=== PATIENT | female | born 1960 | race Two or more races ===

== ENCOUNTER 2016-12-17 12:25 | Emergency (ER) | payer OTHER ==
[~2016-12-17] VITALS: Ht 160 cm; Wt 65.8 kg
[~2016-12-17 12:25] MED LIST: AMITRIPTYLINE H25 MG ORAL; ATENOLOL25 MG ORAL; CYCLOBENZAPRINE10 MG ORAL; DIPHENHYDRAMINE25 M1 ORAL; IBUPROFEN600 MG ORAL; LOSARTAN POTASS50 MG ORAL; LOVAZA1 GM ORAL; MELATONIN5 M4 ORAL; OMEPRAZOLE20 M2 ORAL; PEPCID40 MG PO; PREDNISONE20 MG ORAL; PRILOSEC40 MG ORAL; TRAMADOL HCL50 MG ORAL
[2016-12-17 13:00] VITALS: BP 145/71
[2016-12-17 13:28] LABS: BASOPHILS % (AUTO) 0.9 % (0.0-2.0); EOSINOPHILS % (AUTO) 0.2 % (0.0-3.0); MEAN CORPUSCULAR HEMOGLOBIN 30.8 PG (27.0-31.0); MEAN CORPUSCULAR VOLUME 94 FL (80-99); MEAN PLATELET VOLUME 5.5 FL (6.5-10.1); MONOCYTES % (AUTO) 7.3 % (1.0-10.0); NEUTROPHILS % (AUTO) 60.6 % (45.0-75.0); PLATELET COUNT 362 K/UL (150-450); RED BLOOD COUNT 4.83 M/UL (4.20-5.40); RED CELL DISTRIBUTION WIDTH 12.2 % (11.6-14.8); WHITE BLOOD COUNT 15.1 K/UL (4.8-10.8)
[2016-12-17 13:30] LABS: APPEARANCE,URINE CLEAR; KETONES,URINE NEGATIVE (NEGATIVE); LEUKOCYTE ESTERASE ,URINE NEGATIVE (NEGATIVE); NITRITE,URINE NEGATIVE (NEGATIVE); PH,URINE 8 (4.5-8.0); PROTEIN,URINE NEGATIVE (NEGATIVE); UROBILINOGEN,URINE NORMAL MG/DL (0.0-1.0)
[2016-12-17 13:41] LABS: INR 0.9 (0.9-1.1); PROTHROMBIN TIME 9.3 SEC (9.30-11.50)
[2016-12-17 14:10] LABS: ALANINE AMINOTRANSFERASE 30 U/L (12-78); ALBUMIN/GLOBULIN RATIO 1.1 (1.0-2.7); ANION GAP 9 mmol/L (5-15); ASPARTATE AMINO TRANSFERASE 19 U/L (15-37); CALCIUM 9.8 MG/DL (8.5-10.1); CARBON DIOXIDE 27 MMOL/L (21-32); CHLORIDE 103 MMOL/L (98-107); CREATININE 0.8 MG/DL (0.55-1.30); GLOMERULAR FILTRATION RATE > 60 mL/min (>60); LIPASE 110 U/L (73-393); POTASSIUM 3.9 MMOL/L (3.5-5.1); SODIUM 139 MMOL/L (136-145); TOTAL PROTEIN 7.5 G/DL (6.4-8.2)
--- NOTE | 2016-12-17 14:49 | Diagnostic Imaging Report ---
Indication: Chest pain Technique: One view of the chest Comparison: none Findings: Lungs and pleural spaces are clear. Heart size is normal. Impression: No acute process
[2016-12-17] MEDS ORDERED: METRONIDAZOLE500 MG ORAL (15:38)
[2016-12-17] MEDS ORDERED: CIPROFLOXACIN750 MG ORAL (15:38)
[2016-12-17] MEDS ORDERED: ZOFRAN4 M3 ORAL (15:38)
--- NOTE | 2016-12-17 15:38 | Diagnostic Imaging Report ---
Clinical Indication: Left lower quadrant pain Technique: No oral contrast utilized, per emergency room physician request IV administration nonionic contrast. Venous phase spiral acquisition obtained through the abdomen and pelvis. Multiplanar reconstructions were generated. Total dose length product 1005 mGycm. CTDIvol(s) 19 mGy. Dose reduction achieved using automated exposure control Comparison: 10/10/2014 Findings: There is colonic diverticulosis again demonstrated. Interim development of infiltration of the pericolonic fat and thickening of the fascia adjacent to the distal descending colon. No extraluminal gas or focal fluid collections demonstrated. The appendix is normal. No small bowel distention. No free or loculated intraperitoneal air or fluid is evident. The distal esophagus, stomach, duodenum are unremarkable. The liver, gallbladder, bile ducts, pancreas, spleen, adrenals, kidneys are unremarkable. No retroperitoneal mass or adenopathy. Prominent lymph nodes are again demonstrated in the right lower quadrant, equivocally slightly more prominent and abundant than previously. Again demonstrated is enlarged and diffusely heterogeneous uterus. No adnexal mass. No pelvic mass or adenopathy. The included lung bases are clear. The bones demonstrate degenerative spondylosis changes. Impression: Findings are compatible with uncomplicated acute diverticulitis of the distal descending colon Uterine fibroids, also previously described Prominent right lower quadrant lymph nodes, also previously reported but equivocally slightly more prominent and abundant than on the prior exam, significance uncertain Degenerative spondylosis changes incidentally noted. Findings discussed by phone with nurse enedelia Frias in the emergency room at the time of interpretation The CT scanner at [facility] is accredited by the [employer] and the scans are performed using protocols designed to limit radiation exposure to as low as reasonably achievable to attain images of sufficient resolution adequate for diagnostic evaluation.
[2016-12-17 15:45] VITALS: BP 145/71
--- NOTE | 2016-12-17 23:08 | Emergency Room Report ---
History of Present Illness General Chief Complaint: Flu Like Symptoms Source: Patient, Family Member - son Present Illness HPI The patient is a 56-year-old female presenting for multiple complaints including abdominal pain, chills, fatigue, and nausea. She states that this began approximately one week prior and has been worsening. She denies any pain. She denies any known sick contacts or recent travel. She denies any medical history. She denies other symptoms including V, F, SOB, CP, dysuria, abd pain, diarrhea, constipation Allergies: Coded Allergies: ACETAMINOPHEN (Unverified Allergy, Severe, 09/24/14) reaction to body HYDROCODONE (Unverified Allergy, Severe, 09/24/14) reaction to body HYDROMORPHONE (Unverified Allergy, Severe, Shortness of Breath, 09/24/14) TRAMADOL (Verified Allergy, Unknown, 01/18/15) Patient History Past Medical History: see triage record Pertinent Family History: none Last Menstrual Period: na Reviewed Nursing Documentation: PMH: Agreed, PSxH: Agreed Nursing Documentation-PMH Past Medical History: No History, Except For Hx Hypertension: Yes Hx Gastrointestinal Problems: Yes Review of Systems All Other Systems: negative except mentioned in HPI Physical Exam Vital Signs Date Time Temp Pulse Resp B/P (MAP) Pulse Ox O2 Delivery O2 Flow Rate FiO2 12/17/16 12:48 100.6 108 20 145/71 92 Room Air Sp02 EP Interpretation: reviewed, normal General Appearance: no apparent distress, alert, GCS 15, non-toxic Head: normocephalic, atraumatic Eyes: bilateral eye normal inspection, bilateral eye PERRL ENT: hearing grossly normal, normal pharynx, no angioedema, normal voice Neck: full range of motion, supple/symm/no masses Respiratory: chest non-tender, lungs clear, normal breath sounds, no accessory muscle use, no wheezing, speaking full sentences Cardiovascular #1: regular rate, rhythm, no edema Gastrointestinal: normal bowel sounds, soft, non-distended, no guarding, no rebound, tenderness - LLQ Rectal: deferred Genitourinary: normal inspection, no CVA tenderness Musculoskeletal: back normal, gait/station normal, normal range of motion, non- tender Neurologic: alert, oriented x3, responsive, motor strength/tone normal, sensory intact, speech normal Psychiatric: judgement/insight normal, memory normal, mood/affect normal, no suicidal/homicidal ideation Skin: normal color, no rash, warm/dry, well hydrated Lymphatic: no adenopathy Medical Decision Making PA Attestation Dr. Aggarwal is my supervising physician. Patient management was discussed with my supervising physician Diagnostic Impression: Primary Impression: Diverticulitis Qualified Codes: K57.92 - Diverticulitis of intestine, part unspecified, without perforation or abscess without bleeding ER Course The patient is a 56-year-old female presenting for fatigue, chills, and nausea Differential diagnoses considered but not limited to: Gastroenteritis, influenza , anemia, hypothyroidism, diverticulitis, among others Physical exam: Afebrile. No apparent distress HEENT exam is unremarkable. No tonsillar edema. No lymphadenopathy. Lungs are clear to auscultation bilaterally Abdomen is soft. There is localized left lower quadrant pain No CVA tenderness CT scan of abdomen shows left lower diverticulitis The patient states that she is feeling better and will be discharged home with prescription for ciprofloxacin and Flagyl. She is to follow up with her primary doctor and is given precautions to return including fever, melena, or hematochezia Laboratory Tests Test 12/17/16 13:11 White Blood Count 15.1 K/UL (4.8-10.8) H Red Blood Count 4.83 M/UL (4.20-5.40) Hemoglobin 14.9 G/DL (12.0-16.0) Hematocrit 45.1 % (37.0-47.0) Mean Corpuscular Volume 94 FL (80-99) Mean Corpuscular Hemoglobin 30.8 PG (27.0-31.0) Mean Corpuscular Hemoglobin Concent 33.0 G/DL (32.0-36.0) Red Cell Distribution Width 12.2 % (11.6-14.8) Platelet Count 362 K/UL (150-450) Mean Platelet Volume 5.5 FL (6.5-10.1) L Neutrophils (%) (Auto) 60.6 % (45.0-75.0) Lymphocytes (%) (Auto) 31.0 % (20.0-45.0) Monocytes (%) (Auto) 7.3 % (1.0-10.0) Eosinophils (%) (Auto) 0.2 % (0.0-3.0) Basophils (%) (Auto) 0.9 % (0.0-2.0) Prothrombin Time 9.3 SEC (9.30-11.50) Prothrombin Time INR 0.9 (0.9-1.1) PTT 32 SEC (23-33) Urine Color Pale yellow Urine Appearance Clear Urine pH 8 (4.5-8.0) Urine Specific [place] 1.010 (1.005-1.035) Urine Protein Negative (NEGATIVE) Urine Glucose (UA) Negative (NEGATIVE) Urine Ketones Negative (NEGATIVE) Urine Occult Blood Negative (NEGATIVE) Urine Nitrite Negative (NEGATIVE) Urine Bilirubin Negative (NEGATIVE) Urine Urobilinogen Normal MG/DL (0.0-1.0) Urine Leukocyte Esterase Negative (NEGATIVE) Sodium Level 139 MMOL/L (136-145) Potassium Level 3.9 MMOL/L (3.5-5.1) Chloride Level 103 MMOL/L (98-107) Carbon Dioxide Level 27 MMOL/L (21-32) Anion Gap 9 mmol/L (5-15) Blood Urea Nitrogen 9 mg/dL (7-18) Creatinine 0.8 MG/DL (0.55-1.30) Estimate Glomerular Filtration Rate > 60 mL/min (>60) Glucose Level 90 MG/DL (74-106) Calcium Level 9.8 MG/DL (8.5-10.1) Total Bilirubin 0.4 MG/DL (0.2-1.0) Aspartate Amino Transferase (AST) 19 U/L (15-37) Alanine Aminotransferase (ALT) 30 U/L (12-78) Alkaline Phosphatase 103 U/L (46-116) Troponin I 0.000 ng/mL (0.000-0.056) Total Protein 7.5 G/DL (6.4-8.2) Albumin 3.9 G/DL (3.4-5.0) Globulin 3.6 g/dL Albumin/Globulin Ratio 1.1 (1.0-2.7) Lipase 110 U/L (73-393) Lab Results Impression leukocytosis CT/MRI/US Diagnostic Results CT/MRI/US Diagnostic Results : Imaging Test Ordered: CT abd pelvis Impression LLQ diverticulitis Last Vital Signs Date Time Temp Pulse Resp B/P (MAP) Pulse Ox O2 Delivery O2 Flow Rate FiO2 12/17/16 15:45 100.6 88 20 145/71 92 Room Air Status: improved Disposition: HOME, SELF-CARE Condition: Improved Scripts Ondansetron* (ZOFRAN*) 4 Mg Tablet 4 MG ORAL Q6H Y for Nausea & Vomiting, #15 TAB Prov: MICHAEL BERNARD.A. 12/17/16 Metronidazole* (FLAGYL*) 500 Mg Tablet 500 MG ORAL QID, #28 TAB 0 Refills Prov: MICHAEL BERNARD P.A. 12/17/16 Ciprofloxacin Hcl (CIPROFLOXACIN HCL*) 750 Mg Tablet 750 MG ORAL BID, #14 TAB 0 Refills Prov: MICHAEL BERNARD P.A. 12/17/16 Patient Instructions: Diverticulitis Additional Instructions: I discussed my findings with the patient. All questions and concerns have been answered. Treatment and medication compliance have been addressed. I advised the patient that they need to follow up with PMD in 3-5 days. Return to ED if symptoms worsen, new symptoms arise, or if needed for any reason. Patient verbalized understanding of discharge instructions. MICHAEL BERNARD Dec 17, 2016 23:08
== END 2016-12-17 16:04 | disposition home or self-care (01) ==
LOC: EMR 13:01
DX: K57.32 Diverticulitis of large intestine without perforation or abscess without bleeding (principal); I10 Essential (primary) hypertension; D25.9 Leiomyoma of uterus, unspecified; R07.9 Chest pain, unspecified; Z88.6 Allergy status to analgesic agent
CPT/HCPCS: 36415; 71010; 74177; 80053; 81003; 83690; 84484; 85025; 85610; 85730; 96361; 96374; 96375; 99284; J2405; Q9967; S0028

== ENCOUNTER 2016-12-22 11:16 | Emergency (ER) | payer OTHER ==
[~2016-12-22] VITALS: Ht 160 cm; Wt 81.6 kg
[~2016-12-22 11:16] MED LIST changes: +CIPROFLOXACIN750 MG ORAL; +METRONIDAZOLE500 MG ORAL; +ZOFRAN4 M3 ORAL
[2016-12-22 11:19] VITALS: BP 146/90
[2016-12-22] MEDS ORDERED: Lidocaine 2% Visc 15ml soln ORAL ONE (11:45)
[2016-12-22] MEDS ORDERED: Dicyclomine HCl 10mg/5ml oral soln ORAL ONE (11:45)
[2016-12-22] MEDS ORDERED: Mylanta II UD 30ml ORAL ONE (11:45)
[2016-12-22] MEDS ORDERED: cefTRIAXone 1 GM in NS 55 ML IVPB ONE (12:00)
[2016-12-22 12:19] LABS: BASOPHILS % (AUTO) 1.3 % (0.0-2.0); EOSINOPHILS % (AUTO) 0.4 % (0.0-3.0); LYMPHOCYTES % (AUTO) 47.4 % (20.0-45.0); MEAN CORPUSCULAR HEMOGLOBIN 30.8 PG (27.0-31.0); MEAN CORPUSCULAR HGB CONC 33.4 G/DL (32.0-36.0); MEAN CORPUSCULAR VOLUME 92 FL (80-99); MEAN PLATELET VOLUME 4.9 FL (6.5-10.1); MONOCYTES % (AUTO) 6.6 % (1.0-10.0); NEUTROPHILS % (AUTO) 44.3 % (45.0-75.0); PLATELET COUNT 475 K/UL (150-450); RED BLOOD COUNT 5.03 M/UL (4.20-5.40); RED CELL DISTRIBUTION WIDTH 11.8 % (11.6-14.8); WHITE BLOOD COUNT 10.1 K/UL (4.8-10.8)
[2016-12-22 12:36] LABS: PROTHROMBIN TIME 10.2 SEC (9.30-11.50)
[2016-12-22 12:40] LABS: ALANINE AMINOTRANSFERASE 30 U/L (12-78); ANION GAP 12 mmol/L (5-15); ASPARTATE AMINO TRANSFERASE 24 U/L (15-37); CALCIUM 9.9 MG/DL (8.5-10.1); CARBON DIOXIDE 25 MMOL/L (21-32); CHLORIDE 102 MMOL/L (98-107); CREATININE 0.9 MG/DL (0.55-1.30); GLOMERULAR FILTRATION RATE > 60 mL/min (>60); LIPASE 96 U/L (73-393); POTASSIUM 3.9 MMOL/L (3.5-5.1); SODIUM 139 MMOL/L (136-145); TOTAL PROTEIN 8.2 G/DL (6.4-8.2)
--- NOTE | 2016-12-22 12:55 | Emergency Room Report ---
History of Present Illness General Chief Complaint: General Complaint Source: Patient, Family Member Present Illness HPI 56-year-old female history of hypertension, recent diagnosis of diverticulitis on CAT scan on December 17, presenting with abdominal pain, nausea. Patient states that she is taking antibiotics however states it still does not make her feel well, and upsets her stomach, complaining of nausea and unable to eat or drink normally. Denies any fever or chills. Also complaining of bloody diarrhea since Saturday no other complaints Allergies: Coded Allergies: ACETAMINOPHEN (Unverified Allergy, Severe, 09/24/14) reaction to body HYDROCODONE (Unverified Allergy, Severe, 09/24/14) reaction to body HYDROMORPHONE (Unverified Allergy, Severe, Shortness of Breath, 09/24/14) TRAMADOL (Verified Allergy, Unknown, 01/18/15) Patient History Past Medical History: see triage record Past Surgical History: none Pertinent Family History: none Reviewed Nursing Documentation: PMH: Agreed, PSxH: Agreed Nursing Documentation-PMH Hx Hypertension: Yes Hx Gastrointestinal Problems: Yes Review of Systems All Other Systems: negative except mentioned in HPI Physical Exam Vital Signs Date Time Temp Pulse Resp B/P (MAP) Pulse Ox O2 Delivery O2 Flow Rate FiO2 12/22/16 11:19 98.4 98 16 146/90 96 Room Air Sp02 EP Interpretation: reviewed, normal General Appearance: alert, GCS 15, non-toxic, moderate distress Head: normocephalic, atraumatic Eyes: bilateral eye normal inspection, bilateral eye PERRL, bilateral eye EOMI ENT: normal ENT inspection, normal pharynx, normal voice, moist mucus membranes Neck: normal inspection, full range of motion, supple Respiratory: normal inspection, lungs clear, normal breath sounds, no respiratory distress, no retraction, no wheezing, speaking full sentences, chest symmetrical Cardiovascular #1: normal inspection, regular rate, rhythm, no edema, normal capillary refill Cardiovascular #2: 2+ radial (R), 2+ radial (L) Gastrointestinal: soft, non-distended, no guarding, other - Generalized abdominal pain, no focal pain, no guarding no rigidity normal bowel sounds Musculoskeletal: normal inspection, back normal, normal range of motion, non- tender Neurologic: normal inspection, alert, oriented x3, responsive, motor strength/ tone normal, sensory intact, normal gait, speech normal Psychiatric: normal inspection, judgement/insight normal, memory normal Skin: normal inspection, normal color, no rash, warm/dry, well hydrated, normal turgor Medical Decision Making Diagnostic Impression: Primary Impression: Diverticulitis Additional Impressions: Decreased oral intake Dehydration ER Course 56-year-old female recent diagnosis of diverticulitis presenting with abdominal pain and inability to tolerate by mouth Differential Diagnosis: Diverticulitis, patient not able to tolerate by mouth any more Abscess formation, fistula At this time I'm not concerned with perforation as patient is not peritoneal and appears nontoxic Plan: Basic labs, ua, ekg Pepcid, maalox, pain control, IVF CTA abdo pelvis ER course: Antibiotics given IV IVF Disposition: Patient is to be xferred to outside facility, d/w Dr Mena who has accepted pt for xfer signed out patient to Dr Aggarwal -follow up on CT results, pls call Dr Mena for results -xfer to outside hospital Please note that this Emergency Department Report was dictated using BrightFunnelgunstock repairer technology software, occasionally this can lead to erroneous entry secondary to interpretation by the dictation equipment Rhythm Strip EP Interpretation: Yes Rate: 80 Rhythm: NSR, no PVCs, no ectopy Laboratory Tests Test 12/22/16 11:50 White Blood Count 10.1 K/UL (4.8-10.8) Red Blood Count 5.03 M/UL (4.20-5.40) Hemoglobin 15.5 G/DL (12.0-16.0) Hematocrit 46.4 % (37.0-47.0) Mean Corpuscular Volume 92 FL (80-99) Mean Corpuscular Hemoglobin 30.8 PG (27.0-31.0) Mean Corpuscular Hemoglobin Concent 33.4 G/DL (32.0-36.0) Red Cell Distribution Width 11.8 % (11.6-14.8) Platelet Count 475 K/UL (150-450) H Mean Platelet Volume 4.9 FL (6.5-10.1) L Neutrophils (%) (Auto) 44.3 % (45.0-75.0) L Lymphocytes (%) (Auto) 47.4 % (20.0-45.0) H Monocytes (%) (Auto) 6.6 % (1.0-10.0) Eosinophils (%) (Auto) 0.4 % (0.0-3.0) Basophils (%) (Auto) 1.3 % (0.0-2.0) Prothrombin Time 10.2 SEC (9.30-11.50) Prothrombin Time INR 1.0 (0.9-1.1) PTT 35 SEC (23-33) H Sodium Level 139 MMOL/L (136-145) Potassium Level 3.9 MMOL/L (3.5-5.1) Chloride Level 102 MMOL/L (98-107) Carbon Dioxide Level 25 MMOL/L (21-32) Anion Gap 12 mmol/L (5-15) Blood Urea Nitrogen 9 mg/dL (7-18) Creatinine 0.9 MG/DL (0.55-1.30) Estimate Glomerular Filtration Rate > 60 mL/min (>60) Glucose Level 103 MG/DL (74-106) Calcium Level 9.9 MG/DL (8.5-10.1) Total Bilirubin 0.3 MG/DL (0.2-1.0) Aspartate Amino Transferase (AST) 24 U/L (15-37) Alanine Aminotransferase (ALT) 30 U/L (12-78) Alkaline Phosphatase 90 U/L (46-116) Total Protein 8.2 G/DL (6.4-8.2) Albumin 4.1 G/DL (3.4-5.0) Globulin 4.1 g/dL Albumin/Globulin Ratio 1.0 (1.0-2.7) Lipase 96 U/L (73-393) Last Vital Signs Date Time Temp Pulse Resp B/P (MAP) Pulse Ox O2 Delivery O2 Flow Rate FiO2 12/22/16 11:19 98.4 98 16 146/90 96 Room Air Disposition: XFER T-TRM HOSP Condition: Serious RetinoDonovan M.D. Dec 22, 2016 12:55
[2016-12-22 13:40] VITALS: BP 105/72
[2016-12-22 14:33] VITALS: BP 139/75
--- NOTE | 2016-12-23 08:58 | Diagnostic Imaging Report ---
Indication: Acute abdominal pain, nausea. History of recent diverticulitis. Comparison: Abdomen/pelvis CT dated 12/17/16 Technique: Utilizing a multislice CT scanner, a CT of the abdomen and pelvis was performed after the administration of 100 cc Isovue [address] scans at this facility use dose modulation, iterative reconstruction, and/or weight based dosing when appropriate to reduce radiation dose to as low as reasonably achievable. CTDIvol (mGy): 19 DLP (mGy-cm): 957 Findings: Lack of intravenous contrast limits evaluation of the visceral and vascular structures. The visualized lung bases are clear. The liver is unremarkable. The gallbladder is unremarkable. The pancreas, spleen and adrenal glands are unremarkable. No calculus is identified within either kidney, along the expected course of the ureters or within the urinary bladder. There is no evidence of hydronephrosis or asymmetric perirenal inflammatory change. The urinary bladder is grossly unremarkable. The uterus appears enlarged and heterogeneous with probable uterine fibroids, as before. There is thickening of the distal descending colon with extensive diverticula and mild-moderate surrounding inflammatory stranding compatible with uncomplicated diverticulitis. Overall degree of inflammatory change appears improved compared to the prior examination. The remaining visualized bowel are grossly unremarkable. There is no evidence of obstruction. There is no extraluminal gas or fluid. Scattered prominent lymph nodes in the mid and lower abdomen appear essentially stable. There is no significant calcified atherosclerotic disease of the the abdominal aorta. Mild degenerative changes in the lower lumbar spine noted. Impression: 1. Findings compatible with uncomplicated diverticulitis involving the distal descending colon, with improved degree of inflammatory change compared to the prior examination of 12/17/16. No evidence of microperforation or abscess formation. 2. Stable prominent lymph nodes in the mid and lower abdomen, similar to the prior exam. 3. Probable fibroid uterus
== END 2016-12-22 14:42 | disposition short-term general hospital (02) ==
LOC: EMR 12:03
DX: K57.32 Diverticulitis of large intestine without perforation or abscess without bleeding (principal); E86.0 Dehydration; F50.89 Other specified eating disorder; Z88.6 Allergy status to analgesic agent; I10 Essential (primary) hypertension
CPT/HCPCS: 36415; 74177; 80053; 83690; 85025; 85610; 85730; 86850; 86900; 86901; 96361; 96374; 96375; 99284; Q9967; S0028

== ENCOUNTER 2018-01-24 13:40 | Emergency (ER) | payer OTHER ==
[~2018-01-24] VITALS: Ht 160 cm; Wt 81.6 kg
[2018-01-24 13:45] VITALS: BP 162/99
[2018-01-24] MEDS ORDERED: ALEVE220 M2 PO (13:47)
[2018-01-24] MEDS ORDERED: ADVIL100 M2 ORAL (13:47)
[2018-01-24] MEDS ORDERED: OMEPRAZOLE20 M2 ORAL (13:47)
[2018-01-24] MEDS ORDERED: Ketorolac 30mg Inj IM ONE (14:45)
[2018-01-24 15:00] LABS: APPEARANCE,URINE SLIGHTLY CLOUDY; BILIRUBIN, URINE NEGATIVE (NEGATIVE); COLOR,URINE PALE YELLOW; GLUCOSE, URINE (UA) NEGATIVE (NEGATIVE); KETONES,URINE NEGATIVE (NEGATIVE); LEUKOCYTE ESTERASE ,URINE 2+ (NEGATIVE); NITRITE,URINE NEGATIVE (NEGATIVE); PH,URINE 5 (4.5-8.0); PROTEIN,URINE NEGATIVE (NEGATIVE); UROBILINOGEN,URINE NORMAL MG/DL (0.0-1.0)
--- NOTE | 2018-01-24 15:47 | Emergency Room Report ---
History of Present Illness General Chief Complaint: Abdominal Pain Source: Patient Present Illness HPI 57 YO female presents to the ED c/o 11/04 body aches which are primarily in the back and radiate up toward the neck and on occasion down the legs bilaterally. pt. reports symptoms x 1 week. Pt. states initially she has some generalized lower abdominal pain but her pain moved to her back. She denies N/V/F/C, constipation or diarrhea. Pt. denies recent travel. Pt. reports hx of prediabetes. she Denies hematuria, frequency, urgency or dysuria. Pt. denies trauma, fall or recent strenuous activities. Denies CP, Palpitations, LOC, AMS, dizziness, Changes in Vision, Sensation, paresthesias, or a sudden severe headache. Allergies: Coded Allergies: ACETAMINOPHEN (Unverified Allergy, Severe, 01/24/18) reaction to body HYDROCODONE (Unverified Allergy, Severe, 01/24/18) reaction to body HYDROMORPHONE (Unverified Allergy, Severe, Shortness of Breath, 01/24/18) TRAMADOL (Verified Allergy, Unknown, 01/24/18) Patient History Past Medical History: see triage record Past Surgical History: none Pertinent Family History: none Now: No Immunizations: UTD Reviewed Nursing Documentation: PMH: Agreed; PSxH: Agreed Nursing Documentation-PMH Hx Hypertension: Yes Hx Gastrointestinal Problems: Yes Review of Systems All Other Systems: negative except mentioned in HPI Physical Exam Vital Signs Date Time Temp Pulse Resp B/P (MAP) Pulse Ox O2 Delivery O2 Flow Rate FiO2 01/24/18 13:42 97.9 90 24 162/99 99 Room Air Sp02 EP Interpretation: reviewed, normal General Appearance: well appearing, no apparent distress, alert, GCS 15, non- toxic Head: normocephalic, atraumatic Eyes: bilateral eye normal inspection, bilateral eye PERRL ENT: hearing grossly normal, normal voice Neck: full range of motion Respiratory: lungs clear, normal breath sounds, speaking full sentences Cardiovascular #1: regular rate, rhythm, no edema Gastrointestinal: normal bowel sounds, non tender, soft, non-distended, no guarding Genitourinary: normal inspection, no CVA tenderness Musculoskeletal: back normal, gait/station normal, normal range of motion, tender - TTP to the paraspinal musculature throughout the entire back, no CVA, no midline spinous process ttp, pt. also has bilateral trapezius ttp. FROM, no step-off's or obvious deformities. Neurologic: alert, oriented x3, responsive, motor strength/tone normal, sensory intact, normal gait, speech normal, other - NVI, grossly normal Psychiatric: judgement/insight normal Skin: normal color, no rash, warm/dry, well hydrated Lymphatic: no adenopathy Medical Decision Making PA Attestation Dr. Sanford is my supervising Physician whom patient management has been discussed with. Diagnostic Impression: Primary Impression: Diverticulitis Additional Impression: Generalized body aches ER Course 57 YO female presents to the ED c/o 11/04 body aches which are primarily in the back and radiate up toward the neck and on occasion down the legs bilaterally. pt. reports symptoms x 1 week. Pt. states initially she has some generalized lower abdominal pain but her pain moved to her back. She denies N/V/F/C, constipation or diarrhea. Pt. denies recent travel. Pt. reports hx of prediabetes. she Denies hematuria, frequency, urgency or dysuria. Pt. denies trauma, fall or recent strenuous activities. Denies CP, Palpitations, LOC, AMS, dizziness, Changes in Vision, Sensation, paresthesias, or a sudden severe headache. Ddx considered: epidural abscess, fracture, sprain/strain, meningitis, spinal chord injury, sciatica, cauda equina, Pyelonephritis, UTI, renal calculi just to name a few. Vital signs reviewed and are WNL during ED visit. Pt. is afebrile with no signs of infection, ED tenderness No saddle anesthesia noted, Pt. denies incontinence Neurovascular is intact FROM Pt. describes pain today as moderate and radiates across the lower back. ORDERS: UA: Bacteria and WBC's INTERVENTIONS: - 20mg IM Toradol - Lidoderm patch 5% tp. DISCHARGE: At this time pt. is stable for d/c to home. Will provide printed patient care instructions, and any necessary prescriptions. Care plan and follow up instructions have been discussed with the patient prior to discharge. Labs Test 01/24/18 14:50 Urine Color Pale yellow Urine Appearance Slightly cloudy Urine pH 5 (4.5-8.0) Urine Specific [place] 1.005 (1.005-1.035) Urine Protein Negative (NEGATIVE) Urine Glucose (UA) Negative (NEGATIVE) Urine Ketones Negative (NEGATIVE) Urine Blood 2+ (NEGATIVE) Urine Nitrite Negative (NEGATIVE) Urine Bilirubin Negative (NEGATIVE) Urine Urobilinogen Normal MG/DL (0.0-1.0) Urine Leukocyte Esterase 2+ (NEGATIVE) Urine RBC 5-10 /HPF (0 - 2) Urine WBC 5-10 /HPF (0 - 2) Urine Squamous Epithelial Cells Few /LPF (NONE/OCC) Urine Bacteria Few /HPF (NONE) Last Vital Signs Date Time Temp Pulse Resp B/P (MAP) Pulse Ox O2 Delivery O2 Flow Rate FiO2 01/24/18 15:14 97.9 01/24/18 13:45 73 24 162/99 99 Room Air Disposition: HOME, SELF-CARE Condition: Stable Scripts Lidocaine (Lidoderm) 1 Each Adh..patch 1 PATCH TOPIC DAILY, #30 PATCH 0 Refills Patch(es) may remain in place for up to 12 hours in any 24-hour period. Prov: Tawana Rush 01/24/18 Ciprofloxacin Hcl* (CIPROFLOXACIN HCL*) 500 Mg Tablet 500 MG ORAL EVERY 12 HOURS for 7 Days, #14 TAB 0 Refills Prov: Tawana Rush 01/24/18 Ibuprofen* (MOTRIN*) 600 Mg Tablet 600 MG ORAL THREE TIMES A DAY, #30 TAB 0 Refills Prov: Tawana Rush 01/24/18 Methocarbamol* (ROBAXIN-750*) 750 Mg Tablet 750 MG PO QID, #28 TAB 0 Refills Prov: Tawana Rush 01/24/18 Referrals: NON PHYSICIAN (PCP) Patient Instructions: Diverticulitis, [id number], Muscle Cramps and Spasms, [id number] Additional Instructions: Take medications as directed. Follow up with a Primary Care Provider in 3-5 days, even if your symptoms have resolved. --Please review list of primary care clinics, if you do not already have a primary care provider Return sooner to ED if new symptoms occur, or current symptoms become worse. Do not drink alcohol, drive, or operate heavy machinery while taking Robaxin ( Muscle Relaxers) as this may cause drowsiness. - Please note that this Emergency Department Report was dictated using [employer] registry coordinator technology software, occasionally this can lead to erroneous entry secondary to interpretation by the dictation equipment. Tawana Rush Jan 24, 2018 15:47
[2018-01-24] MEDS ORDERED: ROBAXIN-750750 MG PO (15:48)
[2018-01-24] MEDS ORDERED: IBUPROFEN600 MG ORAL (15:48)
[2018-01-24] MEDS ORDERED: CIPROFLOXACIN500 M2 ORAL (15:48)
[2018-01-24] MEDS ORDERED: LIDODERM700 M1 TOPIC (16:01)
[2018-01-24 16:12] VITALS: BP 152/88
== END 2018-01-24 16:10 | disposition home or self-care (01) ==
LOC: EMR 14:21
DX: K57.32 Diverticulitis of large intestine without perforation or abscess without bleeding (principal); M79.10 Myalgia, unspecified site; I10 Essential (primary) hypertension; Z88.6 Allergy status to analgesic agent; Z88.5 Allergy status to narcotic agent
CPT/HCPCS: 81003; 96372; 99283; J1885

== ENCOUNTER 2018-02-11 12:54 | Emergency (ER) | payer OTHER ==
[~2018-02-11] VITALS: Ht 162.6 cm; Wt 81.6 kg
[~2018-02-11 12:54] MED LIST changes: +ADVIL100 M2 ORAL; +ALEVE220 M2 PO; +CIPROFLOXACIN500 M2 ORAL; +LIDODERM700 M1 TOPIC; +ROBAXIN-750750 MG PO
[2018-02-11 13:09] VITALS: BP 131/81
[2018-02-11] MEDS ORDERED: cefTRIAXone 1 GM in NS 55 ML IVPB ONE (13:30)
[2018-02-11 13:54] LABS: HEMATOCRIT 45.1 % (37.0-47.0); HEMOGLOBIN 15.2 G/DL (12.0-16.0); MEAN CORPUSCULAR VOLUME 92 FL (80-99); PLATELET COUNT 350 K/UL (150-450); RED BLOOD COUNT 4.88 M/UL (4.20-5.40); WHITE BLOOD COUNT 9.1 K/UL (4.8-10.8)
[2018-02-11 13:55] LABS: APPEARANCE,URINE CLEAR; BILIRUBIN, URINE NEGATIVE (NEGATIVE); COLOR,URINE PALE YELLOW; GLUCOSE, URINE (UA) NEGATIVE (NEGATIVE); KETONES,URINE NEGATIVE (NEGATIVE); LEUKOCYTE ESTERASE ,URINE NEGATIVE (NEGATIVE); NITRITE,URINE NEGATIVE (NEGATIVE); PH,URINE 6 (4.5-8.0); PROTEIN,URINE NEGATIVE (NEGATIVE); UROBILINOGEN,URINE NORMAL MG/DL (0.0-1.0)
[2018-02-11] MEDS ORDERED: Ketorolac 30mg Inj IV ONE (14:15)
[2018-02-11] MEDS ORDERED: Lidocaine 2% Visc 15ml soln ORAL ONE (14:15)
[2018-02-11 14:18] LABS: ANION GAP 7 mmol/L (5-15); BLOOD UREA NITROGEN 16 mg/dL (7-18); CALCIUM 9.7 MG/DL (8.5-10.1); CARBON DIOXIDE 31 MMOL/L (21-32); CHLORIDE 100 MMOL/L (98-107); CREATININE 0.9 MG/DL (0.55-1.30); POTASSIUM 4.4 MMOL/L (3.5-5.1); SODIUM 138 MMOL/L (136-145)
--- NOTE | 2018-02-11 14:20 | Emergency Room Report ---
History of Present Illness General Chief Complaint: Abdominal Pain Source: Medical Record Present Illness HPI 37-year-old female presents to the emergency department complaining of recurrence of similar abdominal pain which is 10/10 in severity and similar to what she had last month. Patient has a history of recurrent diverticulitis. Patient reports 9 out of 10 in severity pain throughout the lower abdomen with radiation up toward the stomach 3 days. Patient she has not followed up with her doctor as her pain went away last month so she thought she was better. Denies nausea, vomiting, diarrhea, blood in the stool or dark tarry stools. Denies fevers or chills. Allergies: Coded Allergies: ACETAMINOPHEN (Unverified Allergy, Severe, 01/24/18) reaction to body HYDROCODONE (Unverified Allergy, Severe, 01/24/18) reaction to body HYDROMORPHONE (Unverified Allergy, Severe, Shortness of Breath, 01/24/18) MORPHINE (Verified Allergy, Unknown, 02/11/18) TRAMADOL (Verified Allergy, Unknown, 01/24/18) Patient History Past Medical History: see triage record Past Surgical History: none Pertinent Family History: none Last Menstrual Period: menopause Now: No Immunizations: UTD Reviewed Nursing Documentation: PMH: Agreed; PSxH: Agreed Nursing Documentation-PMH Past Medical History: No History, Except For Hx Cardiac Problems: No - high cholesterol Hx Hypertension: Yes Hx Gastrointestinal Problems: Yes Hx Neurological Problems: No - Brain surgery Review of Systems All Other Systems: negative except mentioned in HPI Physical Exam Vital Signs Date Time Temp Pulse Resp B/P (MAP) Pulse Ox O2 Delivery O2 Flow Rate FiO2 02/11/18 13:02 98.1 75 18 131/81 97 Room Air Sp02 EP Interpretation: reviewed, normal General Appearance: no apparent distress, alert, GCS 15, non-toxic Head: normocephalic, atraumatic Eyes: bilateral eye normal inspection, bilateral eye PERRL ENT: hearing grossly normal, normal voice Neck: full range of motion Respiratory: lungs clear, normal breath sounds, speaking full sentences Cardiovascular #1: regular rate, rhythm Gastrointestinal: normal bowel sounds, non tender, soft, no peritonitis, non- distended, no guarding, no rebound Rectal: deferred Genitourinary: normal inspection, no CVA tenderness Musculoskeletal: back normal, gait/station normal, normal range of motion, non- tender Neurologic: alert, oriented x3, responsive, motor strength/tone normal, sensory intact, normal gait, speech normal, grossly normal Psychiatric: judgement/insight normal Skin: normal color, no rash, warm/dry, well hydrated Medical Decision Making PA Attestation Dr. Sanford is my supervising Physician whom patient management has been discussed with. Diagnostic Impression: Primary Impression: Diverticulitis ER Course 37-year-old female presents to the emergency department complaining of recurrence of similar abdominal pain which is 10/10 in severity and similar to what she had last month. Patient has a history of recurrent diverticulitis. Patient reports 9 out of 10 in severity pain throughout the lower abdomen with radiation up toward the stomach 3 days. Patient she has not followed up with her doctor as her pain went away last month so she thought she was better. Denies nausea, vomiting, diarrhea, blood in the stool or dark tarry stools. Denies fevers or chills. Ddx considered but are not limited to Diverticulitis, acute appy, diarrhea,UC, PUD, GE, pancreatitis, gallstone Vital signs: are WNL, pt. is afebrile H&PE are most consistent with Hypovolemia and diarrhea ORDERS: CBC, CMP, lipase, UA ED INTERVENTIONS: -Flagyl IV -Rocephin IV -Zantac IV -Lidocaine Viscous PO DISCHARGE: At this time pt. is stable for d/c to home. Will provide printed patient care instructions, and any necessary prescriptions. Care plan and follow up instructions have been discussed with the patient prior to discharge. Labs Test 02/11/18 13:34 White Blood Count 9.1 K/UL (4.8-10.8) Red Blood Count 4.88 M/UL (4.20-5.40) Hemoglobin 15.2 G/DL (12.0-16.0) Hematocrit 45.1 % (37.0-47.0) Mean Corpuscular Volume 92 FL (80-99) Mean Corpuscular Hemoglobin 31.2 PG (27.0-31.0) Mean Corpuscular Hemoglobin Concent 33.8 G/DL (32.0-36.0) Red Cell Distribution Width 11.0 % (11.6-14.8) Platelet Count 350 K/UL (150-450) Mean Platelet Volume 5.4 FL (6.5-10.1) Neutrophils (%) (Auto) % (45.0-75.0) Lymphocytes (%) (Auto) % (20.0-45.0) Monocytes (%) (Auto) % (1.0-10.0) Eosinophils (%) (Auto) % (0.0-3.0) Basophils (%) (Auto) % (0.0-2.0) Differential Total Cells Counted 100 Neutrophils % (Manual) 34 % (45-75) Lymphocytes % (Manual) 60 % (20-45) Monocytes % (Manual) 4 % (1-10) Eosinophils % (Manual) 1 % (0-3) Basophils % (Manual) 1 % (0-2) Band Neutrophils 0 % (0-8) Platelet Estimate Adequate Platelet Morphology Normal Red Blood Cell Morphology Normal Urine Color Pale yellow Urine Appearance Clear Urine pH 6 (4.5-8.0) Urine Specific [place] 1.005 (1.005-1.035) Urine Protein Negative (NEGATIVE) Urine Glucose (UA) Negative (NEGATIVE) Urine Ketones Negative (NEGATIVE) Urine Blood 1+ (NEGATIVE) Urine Nitrite Negative (NEGATIVE) Urine Bilirubin Negative (NEGATIVE) Urine Urobilinogen Normal MG/DL (0.0-1.0) Urine Leukocyte Esterase Negative (NEGATIVE) Urine RBC 0-2 /HPF (0 - 2) Urine WBC 0-2 /HPF (0 - 2) Urine Squamous Epithelial Cells Occasional /LPF Urine Bacteria Occasional /HPF (NONE) Sodium Level 138 MMOL/L (136-145) Potassium Level 4.4 MMOL/L (3.5-5.1) Chloride Level 100 MMOL/L (98-107) Carbon Dioxide Level 31 MMOL/L (21-32) Anion Gap 7 mmol/L (5-15) Blood Urea Nitrogen 16 mg/dL (7-18) Creatinine 0.9 MG/DL (0.55-1.30) Estimat Glomerular Filtration Rate > 60 mL/min (>60) Glucose Level 90 MG/DL (74-106) Calcium Level 9.7 MG/DL (8.5-10.1) Total Bilirubin 0.4 MG/DL (0.2-1.0) Aspartate Amino Transf (AST/SGOT) 22 U/L (15-37) Alanine Aminotransferase (ALT/SGPT) 26 U/L (12-78) Alkaline Phosphatase 94 U/L (46-116) Total Protein 8.7 G/DL (6.4-8.2) Albumin 4.2 G/DL (3.4-5.0) Globulin 4.5 g/dL Albumin/Globulin Ratio 0.9 (1.0-2.7) Lipase 123 U/L (73-393) Last Vital Signs Date Time Temp Pulse Resp B/P (MAP) Pulse Ox O2 Delivery O2 Flow Rate FiO2 02/11/18 13:09 98.1 72 18 131/81 97 Room Air Disposition: HOME, SELF-CARE Condition: Stable Scripts Metronidazole* (FLAGYL*) 500 Mg Tablet 500 MG ORAL BID, #14 TAB 0 Refills Prov: Tawana Rush 02/11/18 Ciprofloxacin Hcl* (CIPROFLOXACIN HCL*) 500 Mg Tablet 500 MG ORAL EVERY 12 HOURS for 7 Days, #14 TAB 0 Refills Prov: Tawana Rush 02/11/18 Patient Instructions: Abdominal Pain, Adult Additional Instructions: Take medications as directed. Follow up with a * GI SPECIALIST Primary Care Provider in 3-5 days, EVEN IF YOUR SYMPTOMS RESOLVE, THIS IS A CHRONIC CONDITION. --Please review list of primary care clinics, if you do not already have a primary care provider Return sooner to ED if new symptoms occur, or current symptoms become worse. - Please note that this Emergency Department Report was dictated using [employer] medical transcriptionist technology software, occasionally this can lead to erroneous entry secondary to interpretation by the dictation equipment. Tawana Rush Feb 11, 2018 14:20
[2018-02-11 14:25] LABS: ALANINE AMINOTRANSFERASE 26 U/L (12-78); ALBUMIN 4.2 G/DL (3.4-5.0); ALBUMIN/GLOBULIN RATIO 0.9 (1.0-2.7); ALKALINE PHOSPHATASE 94 U/L (46-116); ASPARTATE AMINO TRANSFERASE 22 U/L (15-37); BILIRUBIN,TOTAL 0.4 MG/DL (0.2-1.0)
[2018-02-11] MEDS ORDERED: CIPROFLOXACIN500 M2 ORAL (14:54)
[2018-02-11] MEDS ORDERED: METRONIDAZOLE500 MG ORAL (14:54)
[2018-02-11 15:13] VITALS: BP 131/81
== END 2018-02-11 15:16 | disposition home or self-care (01) ==
LOC: EMR 13:37
DX: K57.32 Diverticulitis of large intestine without perforation or abscess without bleeding (principal); I10 Essential (primary) hypertension; Z88.6 Allergy status to analgesic agent; Z88.5 Allergy status to narcotic agent
CPT/HCPCS: 36415; 80053; 81003; 83690; 85007; 85025; 96365; 96368; 96375; 99284; J0696; J1885; S0028

== ENCOUNTER 2018-05-17 12:47 | Emergency (ER) | payer OTHER ==
[~2018-05-17] VITALS: Ht 160 cm; Wt 85.7 kg
--- NOTE | 2018-05-17 12:52 | NUR ---
ED Nurse Note: Patient walked in c/o lower ABD pain x 3 weeks; reports dysuria with pain rated at 7/10. Pt denies N/V/D. Pt is A&O x4, V/S stable with no s/s of acute distress noted at this time.
[2018-05-17 12:57] VITALS: BP 125/85
[2018-05-17] MEDS ORDERED: Ketorolac 30mg Inj IV ONE (13:30)
[2018-05-17 14:12] LABS: APPEARANCE,URINE CLEAR; BILIRUBIN, URINE NEGATIVE (NEGATIVE); COLOR,URINE PALE YELLOW; GLUCOSE, URINE (UA) NEGATIVE (NEGATIVE); KETONES,URINE NEGATIVE (NEGATIVE); LEUKOCYTE ESTERASE ,URINE 1+ (NEGATIVE); NITRITE,URINE NEGATIVE (NEGATIVE); PH,URINE 8 (4.5-8.0); PROTEIN,URINE NEGATIVE (NEGATIVE); UROBILINOGEN,URINE NORMAL MG/DL (0.0-1.0)
[2018-05-17 14:14] LABS: BASOPHILS % (AUTO) 0.7 % (0.0-2.0); EOSINOPHILS % (AUTO) 0.3 % (0.0-3.0); HEMATOCRIT 47.7 % (37.0-47.0); HEMOGLOBIN 15.6 G/DL (12.0-16.0); LYMPHOCYTES % (AUTO) 28.9 % (20.0-45.0); MEAN CORPUSCULAR VOLUME 93 FL (80-99); NEUTROPHILS % (AUTO) 67.1 % (45.0-75.0); PLATELET COUNT 414 K/UL (150-450); RED BLOOD COUNT 5.15 M/UL (4.20-5.40); RED CELL DISTRIBUTION WIDTH 12.8 % (11.6-14.8); WHITE BLOOD COUNT 8.7 K/UL (4.8-10.8)
[2018-05-17 14:26] LABS: ANION GAP 10 mmol/L (5-15); BLOOD UREA NITROGEN 17 mg/dL (7-18); CALCIUM 9.7 MG/DL (8.5-10.1); CARBON DIOXIDE 29 MMOL/L (21-32); CHLORIDE 100 MMOL/L (98-107); CREATININE 0.9 MG/DL (0.55-1.30); POTASSIUM 4.6 MMOL/L (3.5-5.1); SODIUM 139 MMOL/L (136-145)
--- NOTE | 2018-05-17 14:34 | Diagnostic Imaging Report ---
EXAM: XR Right Knee, 3 views CLINICAL HISTORY: PAIN TECHNIQUE: Three views of the right knee. COMPARISON: No relevant prior studies available. FINDINGS: Bones/joints: No acute fracture. Trace effusion and mild degenerative changes. Soft tissues: No radiodense foreign body. IMPRESSION: No acute fracture.
--- NOTE | 2018-05-17 14:34 | Diagnostic Imaging Report ---
EXAM: XR Chest, 1 View CLINICAL HISTORY: PAIN TECHNIQUE: Frontal view of the chest. COMPARISON: No relevant prior studies available. FINDINGS: Lungs: No consolidation. Pleural space: Unremarkable. No pneumothorax. Heart: Unremarkable. No cardiomegaly. Mediastinum: Unremarkable. Bones/joints: No acute fracture. IMPRESSION: No acute cardiopulmonary disease.
--- NOTE | 2018-05-17 14:34 | Diagnostic Imaging Report ---
EXAM: XR Left Knee, 3 views CLINICAL HISTORY: PAIN TECHNIQUE: Three views of the left knee. COMPARISON: No relevant prior studies available. FINDINGS: Bones/joints: No acute fracture. Trace effusion. Mild degenerative changes. Soft tissues: No radiodense foreign body. IMPRESSION: No acute fracture.
[2018-05-17 14:38] LABS: ALANINE AMINOTRANSFERASE 32 U/L (12-78); ALBUMIN 4.1 G/DL (3.4-5.0); ALKALINE PHOSPHATASE 101 U/L (46-116); ASPARTATE AMINO TRANSFERASE 30 U/L (15-37); BILIRUBIN,TOTAL 0.3 MG/DL (0.2-1.0); CREATINE KINASE 587 U/L (26-308)
[2018-05-17 15:00] VITALS: BP 104/58
--- NOTE | 2018-05-17 15:59 | Emergency Room Report ---
History of Present Illness General Chief Complaint: Female Urogenital Problems Source: Patient Present Illness HPI Patient presents with 3 weeks of bilateral lower back pain radiating to her legs with dysuria. She also has some lower abdominal fullness. She states the pain is mainly in her knees. She denies any trauma. There is been no fevers or chills. She denies nausea, vomiting diarrhea. She is been able to move her bowels. She does not have pain bending over or sitting. She does have pain in her knees when she stands and feels there is swelling behind the knees. There is no edema or calf pain. She has had urinary tract infections in the past and is concerned that this might be the cause. She rates the pain 10/10 and burning with the worst being in her knees. She is been seen for diverticulitis in the past. She states this does not feel like that same type of pain.This is seen December 17 CT scan last year. Treated with Flagyl and Keflex. Diverticulitis recurred. She also has a history of gastritis. She has multiple adverse reactions to opiates. The patient has a history of brain surgery. Specifics are not clear History of high cholesterol. History of hypertension. Allergies: Coded Allergies: HYDROCODONE (Unverified Allergy, Severe, 01/24/18) reaction to body HYDROMORPHONE (Unverified Allergy, Severe, Shortness of Breath, 01/24/18) MORPHINE (Verified Allergy, Unknown, 02/11/18) TRAMADOL (Verified Allergy, Unknown, 01/24/18) Patient History Past Medical History: see triage record Social History: Denies: smoking Social History Narrative With son Last Menstrual Period: None Now: No : 1 Para: 1 Reviewed Nursing Documentation: PMH: Agreed; PSxH: Agreed Nursing Documentation-PMH Hx Cardiac Problems: No - high cholesterol Hx Hypertension: Yes Hx Gastrointestinal Problems: Yes Hx Neurological Problems: No - Brain surgery Review of Systems All Other Systems: negative except mentioned in HPI Physical Exam Vital Signs Date Time Temp Pulse Resp B/P (MAP) Pulse Ox O2 Delivery O2 Flow Rate FiO2 05/17/18 12:52 98.1 75 18 125/85 95 Room Air Sp02 EP Interpretation: reviewed, normal General Appearance: well appearing, no apparent distress, GCS 15 Head: normocephalic Eyes: bilateral eye normal inspection, bilateral eye PERRL ENT: moist mucus membranes Neck: supple Respiratory: lungs clear, normal breath sounds Cardiovascular #1: regular rate, rhythm, no edema Cardiovascular #2: 2+ radial (R) Gastrointestinal: normal inspection, normal bowel sounds, non tender, no mass, non-distended Musculoskeletal: back normal, gait/station normal, normal range of motion, no calf tenderness, Gissel's Sign negative, other - Spine with good alignment without paraspinous or point tenderness. Straight leg raise is negative bilaterally, tender - Bilateral knees with posterior popliteal fossa tenderness Neurologic: alert, oriented x3, motor strength/tone normal, DTRs symmetric, sensory intact, cerebellar normal, normal gait, speech normal Psychiatric: anxious Skin: normal inspection, warm/dry Medical Decision Making Diagnostic Impression: Primary Impression: Osteoarthritis Qualified Codes: M17.0 - Bilateral primary osteoarthritis of knee ER Course The patient patient presents with a constellation of symptoms present for 3weeks. She mainly is complaining about bilateral knee pain however she also has bilateral lower back pain and lower abdominal pain. Differential includes polyarthritis, gout, disc disease, UTI amongst others. Based on her abdominal exam diverticulitis is not likely. Evaluation will be with chest x-ray, bilateral knee films, labs. The patient is treated with Toradol and Pepcid. Labs with normal CBC and CMP. Sedimentation rate 21. CPK slightly elevated. Urinalysis clear. Uric acid negative. Patient markedly improved after Toradol. Given the normal sed rate and slightly elevated CPK is doubtful that this is myositis. Discussed x-ray findings with patient. Also discussed treatment plan. In addition was highly suggested she see a phlebotomy tech. Other considerations might be pseudogout. Prefers Naprosyn. She does not want to take opiates. Patient stable for outpatient observation and treatment. Labs Test 05/17/18 14:00 White Blood Count 8.7 K/UL (4.8-10.8) Red Blood Count 5.15 M/UL (4.20-5.40) Hemoglobin 15.6 G/DL (12.0-16.0) Hematocrit 47.7 % (37.0-47.0) Mean Corpuscular Volume 93 FL (80-99) Mean Corpuscular Hemoglobin 30.3 PG (27.0-31.0) Mean Corpuscular Hemoglobin Concent 32.7 G/DL (32.0-36.0) Red Cell Distribution Width 12.8 % (11.6-14.8) Platelet Count 414 K/UL (150-450) Mean Platelet Volume 4.7 FL (6.5-10.1) Neutrophils (%) (Auto) 67.1 % (45.0-75.0) Lymphocytes (%) (Auto) 28.9 % (20.0-45.0) Monocytes (%) (Auto) 3.0 % (1.0-10.0) Eosinophils (%) (Auto) 0.3 % (0.0-3.0) Basophils (%) (Auto) 0.7 % (0.0-2.0) Erythrocyte Sedimentation Rate 21 MM/HR (0-30) Urine Color Pale yellow Urine Appearance Clear Urine pH 8 (4.5-8.0) Urine Specific [place] 1.010 (1.005-1.035) Urine Protein Negative (NEGATIVE) Urine Glucose (UA) Negative (NEGATIVE) Urine Ketones Negative (NEGATIVE) Urine Blood Negative (NEGATIVE) Urine Nitrite Negative (NEGATIVE) Urine Bilirubin Negative (NEGATIVE) Urine Urobilinogen Normal MG/DL (0.0-1.0) Urine Leukocyte Esterase 1+ (NEGATIVE) Urine RBC 0 /HPF (0 - 2) Urine WBC 0-2 /HPF (0 - 2) Urine Squamous Epithelial Cells Occasional /LPF Urine Bacteria Occasional /HPF (NONE) Sodium Level 139 MMOL/L (136-145) Potassium Level 4.6 MMOL/L (3.5-5.1) Chloride Level 100 MMOL/L (98-107) Carbon Dioxide Level 29 MMOL/L (21-32) Anion Gap 10 mmol/L (5-15) Blood Urea Nitrogen 17 mg/dL (7-18) Creatinine 0.9 MG/DL (0.55-1.30) Estimat Glomerular Filtration Rate > 60 mL/min (>60) Glucose Level 96 MG/DL (74-106) Uric Acid 4.4 MG/DL (2.6-7.2) Calcium Level 9.7 MG/DL (8.5-10.1) Total Bilirubin 0.3 MG/DL (0.2-1.0) Aspartate Amino Transf (AST/SGOT) 30 U/L (15-37) Alanine Aminotransferase (ALT/SGPT) 32 U/L (12-78) Alkaline Phosphatase 101 U/L (46-116) Total Creatine Kinase 587 U/L (26-308) Troponin I 0.017 ng/mL (0.000-0.056) Pro-B-Type Natriuretic Peptide 32 pg/mL (0-125) Total Protein 8.3 G/DL (6.4-8.2) Albumin 4.1 G/DL (3.4-5.0) Globulin 4.2 g/dL Albumin/Globulin Ratio 1.0 (1.0-2.7) EKG Diagnostic Results Rate: normal Rhythm: NSR ST Segments: no acute changes Rhythm Strip Diag. Results EP Interpretation: yes Rhythm: NSR, no PVC's, no ectopy Chest X-Ray Diagnostic Results Chest X-Ray Diagnostic Results : Chest X-Ray Ordered: Yes # of Views/Limited/Complete: 1 View Indication: Other EP Interpretation: Yes Interpretation: no consolidation, no effusion, no pneumothorax Impression: No acute disease Electronically Signed by: Electronically signed by Liam Golden MD Other X-Ray Diagnostic Results Other X-Ray Diagnostic Results #1: X-Ray ordered: Right knee # of Views/Limited Vs Complete: 3 View Indication: Pain Interpretation: no dislocation, no soft tissue swelling, no fractures, other - Degenerative arthritis small effusion Impression: Other Electronically Signed by: Electronically signed by Liam Golden MD Other X-Ray Diagnostic Results #2: X-Ray ordered: Left knee # of Views/Limited Vs Complete: 3 View Indication: Pain Interpretation: no dislocation, no soft tissue swelling, no fractures, other - Degenerative disease Impression: Other Electronically Signed by: Electronically signed by Liam Golden MD Last Vital Signs Date Time Temp Pulse Resp B/P (MAP) Pulse Ox O2 Delivery O2 Flow Rate FiO2 05/17/18 16:13 98.5 55 19 105/77 98 Room Air Status: improved Disposition: HOME, SELF-CARE Condition: Improved Scripts Acetaminophen (Tylenol) 325 Mg Tablet 650 MG ORAL Q6H PRN for Prn Pain/Headache/Temp > 101, #20 TAB 0 Refills Prov: Liam Golden MD 05/17/18 Naproxen (Naproxen) 250 Mg Tablet 250 MG PO TID, #20 TAB Prov: Liam Golden MD 05/17/18 Referrals: NON PHYSICIAN (PCP) Liam Golden MD 23, 2019 15:59
[2018-05-17] MEDS ORDERED: NAPROXEN250 M1 PO (16:02)
[2018-05-17] MEDS ORDERED: TYLENOL325 MG ORAL (16:02)
[2018-05-17 16:13] VITALS: BP 105/77
--- NOTE | 2018-05-17 16:14 | NUR ---
ER DISCHARGE NOTE: Patient is cleared to be discharged per ERMD, pt is aox4, accompanied by son, on room air, with stable vital signs. pt was given dc and prescription instructions, pt was able to verbalize understanding, pt id band and iv site removed without complications. pt is able to ambulate with steady gait. pt took all belongings.
== END 2018-05-17 16:15 | disposition home or self-care (01) ==
LOC: EMR 13:30
DX: M19.90 Unspecified osteoarthritis, unspecified site (principal); M25.562 Pain in left knee; M25.561 Pain in right knee; R07.9 Chest pain, unspecified; I10 Essential (primary) hypertension; E78.00 Pure hypercholesterolemia, unspecified; Z88.6 Allergy status to analgesic agent
CPT/HCPCS: 36415; 71045; 73562; 80053; 81003; 82550; 83880; 84484; 84550; 85025; 85651; 93005; 96374; 96375; 99284; J1885; S0028

== ENCOUNTER 2018-11-23 12:32 | Emergency (ER) | payer OTHER ==
[~2018-11-23] VITALS: Ht 160 cm; Wt 86.2 kg
[~2018-11-23 12:32] MED LIST changes: +NAPROXEN250 M1 PO; +TYLENOL325 MG ORAL
[2018-11-23 13:00] VITALS: BP 162/101
--- NOTE | 2018-11-23 13:10 | NUR ---
ED Nurse Note: Patient walked into ED from home c/o right side neck/throat that radiates down to her right breast and patient reports she has been burping a lot. patient is alert awake x4 ambulatory steady gait, breathing unlabored and even, speaking in full sentences.
[2018-11-23] MEDS ORDERED: Isovue-300 100ml vial INJ PRN (14:00)
--- NOTE | 2018-11-23 15:36 | NUR ---
ED Nurse Note: blood sent to lab
[2018-11-23 15:57] LABS: BASOPHILS % (AUTO) 0.6 % (0.0-2.0); EOSINOPHILS % (AUTO) 0.1 % (0.0-3.0); HEMOGLOBIN 16.7 G/DL (12.0-16.0); LYMPHOCYTES % (AUTO) 31.7 % (20.0-45.0); MEAN CORPUSCULAR VOLUME 96 FL (80-99); MONOCYTES % (AUTO) 2.3 % (1.0-10.0); NEUTROPHILS % (AUTO) 65.4 % (45.0-75.0); PLATELET COUNT 374 K/UL (150-450); RED BLOOD COUNT 5.01 M/UL (4.20-5.40); RED CELL DISTRIBUTION WIDTH 12.1 % (11.6-14.8); WHITE BLOOD COUNT 14.9 K/UL (4.8-10.8)
[2018-11-23 15:59] LABS: ANION GAP 11 mmol/L (5-15); BLOOD UREA NITROGEN 19 mg/dL (7-18); CALCIUM 10.5 MG/DL (8.5-10.1); CARBON DIOXIDE 28 MMOL/L (21-32); CHLORIDE 100 MMOL/L (98-107); POTASSIUM 4.1 MMOL/L (3.5-5.1); SODIUM 139 MMOL/L (136-145)
[2018-11-23 16:04] LABS: ALANINE AMINOTRANSFERASE 24 U/L (12-78); ALBUMIN 4.6 G/DL (3.4-5.0); ALBUMIN/GLOBULIN RATIO 1.1 (1.0-2.7); ALKALINE PHOSPHATASE 102 U/L (46-116); APPEARANCE,URINE CLEAR; ASPARTATE AMINO TRANSFERASE 18 U/L (15-37); BILIRUBIN, URINE NEGATIVE (NEGATIVE); BILIRUBIN,TOTAL 0.3 MG/DL (0.2-1.0); COLOR,URINE PALE YELLOW; GLUCOSE, URINE (UA) NEGATIVE (NEGATIVE); KETONES,URINE NEGATIVE (NEGATIVE); LEUKOCYTE ESTERASE ,URINE NEGATIVE (NEGATIVE); NITRITE,URINE NEGATIVE (NEGATIVE); PH,URINE 5 (4.5-8.0); PROTEIN,URINE NEGATIVE (NEGATIVE); UROBILINOGEN,URINE NORMAL MG/DL (0.0-1.0)
--- NOTE | 2018-11-23 16:23 | NUR ---
ED Nurse Note: patient educated to stay NPO. patient verbalized the understanding of not eating anything by mouth until further instructed to do so.
--- NOTE | 2018-11-23 17:04 | NUR ---
ED Nurse Note: patient taken to CT scan
--- NOTE | 2018-11-23 17:30 | NUR ---
ED Nurse Note: patient came back from CT
--- NOTE | 2018-11-23 18:46 | Diagnostic Imaging Report ---
CT ABDOMEN + PELVIS With Contrast: Comparison 12 22 2016 Diverticulosis without evidence of diverticulitis No bowel dilation or free air Abdominal solid organs, gallbladder and abdominal aorta appear within limits Normal caliber appendix without secondary signs Fibroid uterus Ovaries appear unremarkable No free fluid
--- NOTE | 2018-11-23 19:03 | Diagnostic Imaging Report ---
Indication: Right-sided neck and throat pain radiating down to right breast Technique: IV administration nonionic contrast. Spiral acquisitions obtained through the neck. Multiplanar reconstructions were generated. Total dose length product 2432 mGycm. CTDIvol(s) 64 mGy. Dose reduction achieved using automated exposure control Comparison: none Findings: The nasopharynx, oropharynx, hypopharynx, and larynx all appear unremarkable. The optic globes are intact. The retroseptal orbits are intact. There is minimal disease within the sphenoid sinus. No cervical mass or adenopathy. The trachea appears unremarkable. The upper lungs are clear. The bones are unremarkable. Incidentally noted is an empty sella. The salivary glands are unremarkable. Impression: Minimal sphenoid sinus disease Otherwise negative This agrees with the preliminary interpretation provided overnight by [facility]. The CT scanner at [facility] is accredited by the [employer] and the scans are performed using protocols designed to limit radiation exposure to as low as reasonably achievable to attain images of sufficient resolution adequate for diagnostic evaluation.
--- NOTE | 2018-11-23 19:06 | Emergency Room Report ---
History of Present Illness General Chief Complaint: Sore Throat Present Illness HPI 58-year-old female with history of diverticulosis currently controlled and in no apparent distress here complaining of 4 days of right sided throat pain that is radiating to right upper quadrant of abdomen and right upper back. Complains of acid reflux however denies nausea vomiting. Denies abdominal pain. Emphasizes on the origin of her pain being the right side of her throat. Denies any fishbone. Denies fever and chills, cough and congestion. Denies palpitation, urinary symptoms. Has not taken medication for symptom relief. Denies blood in her stool. Reports that she has a sensation when she is leaning forward as well as laying down. Denies anxiety Allergies: Coded Allergies: HYDROCODONE (Unverified Allergy, Severe, 01/24/18) reaction to body HYDROMORPHONE (Unverified Allergy, Severe, Shortness of Breath, 01/24/18) MORPHINE (Verified Allergy, Unknown, 02/11/18) TRAMADOL (Verified Allergy, Unknown, 01/24/18) Patient History Past Medical History: see triage record Past Surgical History: unable to obtain Pertinent Family History: none Now: No Immunizations: UTD Reviewed Nursing Documentation: PMH: Agreed; PSxH: Agreed Nursing Documentation-PMH Hx Cardiac Problems: No - high cholesterol Hx Hypertension: Yes Hx Gastrointestinal Problems: Yes Hx Neurological Problems: No - Brain surgery Review of Systems All Other Systems: negative except mentioned in HPI Physical Exam Vital Signs Date Time Temp Pulse Resp B/P (MAP) Pulse Ox O2 Delivery O2 Flow Rate FiO2 11/23/18 13:00 97.5 90 18 162/101 (121) 95 Room Air Sp02 EP Interpretation: reviewed, normal General Appearance: no apparent distress, alert, GCS 15, non-toxic Head: normocephalic, atraumatic Eyes: bilateral eye normal inspection, bilateral eye PERRL ENT: hearing grossly normal, no angioedema, normal voice, TMs + canals normal, uvula midline, pharyngeal erythema Neck: full range of motion, supple, supple/symm/no masses Respiratory: chest non-tender, lungs clear, normal breath sounds, no rhonchi, no wheezing, speaking full sentences Cardiovascular #1: normal peripheral pulses, regular rate, rhythm, no edema, no murmur, normal capillary refill Gastrointestinal: normal bowel sounds, non tender, soft, non-distended, no guarding, no pulsatile mass, no rebound Genitourinary: normal inspection, no CVA tenderness Musculoskeletal: back normal, gait/station normal, normal range of motion, non- tender Neurologic: alert, oriented x3, responsive, motor strength/tone normal, sensory intact, speech normal Psychiatric: judgement/insight normal, memory normal, mood/affect normal, no suicidal/homicidal ideation Skin: no rash Lymphatic: no adenopathy Medical Decision Making PA Attestation All diagnoses and treatment plans were reviewed and discussed with my supervising physician Dr. Baires Diagnostic Impression: Primary Impression: Pharyngitis Additional Impression: GERD (gastroesophageal reflux disease) ER Course 58-year-old female with history of diverticulosis currently controlled and in no apparent distress here complaining of 4 days of right sided throat pain that is radiating to right upper quadrant of abdomen and right upper back. Complains of acid reflux however denies nausea vomiting. Denies abdominal pain. Emphasizes on the origin of her pain being the right side of her throat. Denies any fishbone. Denies fever and chills, cough and congestion. Denies palpitation, urinary symptoms. Has not taken medication for symptom relief. Denies blood in her stool. Reports that she has a sensation when she is leaning forward as well as laying down. Denies anxiety Ddx considered but are not limited to: strep pharyngitis, URI, tonsillitis, peritonsillar abscess, influneza, cervical mass, diverticulosis, peptic ulcer Vital signs: are WNL, pt. is afebrile H&PE are most consistent with: Diverticulosis without diverticulitis, pharyngitis ORDERS: CT neck, CT abdomen pelvis, CBC, CMP, UA, omeprazole, azithromycin ED INTERVENTIONS: None required at this time. DISCHARGE: At this time pt. is stable for d/c to home. Will provide printed patient care instructions, and any necessary prescriptions. Care plan and follow up instructions have been discussed with the patient prior to discharge. 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 CT/MRI/US Diagnostic Results CT/MRI/US Diagnostic Results #1: Imaging Test Ordered: CT neck with contrast soft tissue Impression Within normal limits No evidence of mass or adenopathy Epiglottis and aryepiglottic folds appear within limits No evidence of airway narrowing or retropharyngeal soft tissue swelling Small amount of frothy material right sphenoid sinus Mastoids are clear Major vascular structures appear within limits CT/MRI/US Diagnostic Results #2: Imaging Test Ordered: CT abdomen pelvis with contrast Impression Diverticulosis without evidence of diverticulitis No bowel dilation or free air Abdominal solid organs, gallbladder and abdominal aorta appear within limits Normal caliber appendix without secondary signs Fibroid uterus Ovaries appear unremarkable No free fluid Last Vital Signs Date Time Temp Pulse Resp B/P (MAP) Pulse Ox O2 Delivery O2 Flow Rate FiO2 11/23/18 13:00 97.5 90 18 162/101 95 Room Air Disposition: HOME, SELF-CARE Condition: Stable Scripts Omeprazole (OMEPRAZOLE) 20 Mg Tablet.dr 20 MG ORAL DAILY, #30 TAB Prov: Anjum Castellon 11/23/18 Azithromycin* (ZITHROMAX*) 250 Mg Tablet 250 MG ORAL DAILY, #6 TAB 0 Refills Take two tables once daily for 1 day, then one tablet once daily for 4 days. Prov: Anjum Castellon 11/23/18 Referrals: NOT CHOSEN IPA/,REFERRING (PCP) Patient Instructions: Food Choices for Gastroesophageal Reflux Disease, Adult, [id number], Pharyngitis Additional Instructions: Take medication as directed follow-up with your primary care provider if worsening symptoms return to the emergency room Anjum Castellon Nov 23, 2018 19:06
[2018-11-23] MEDS ORDERED: ZITHROMAX250 MG ORAL (19:07)
[2018-11-23] MEDS ORDERED: OMEPRAZOLE20 M3 ORAL (19:07)
[2018-11-23 19:19] VITALS: BP_SYST 155; BP_SYST 162; BP_DIAS 101; BP_DIAS 98
--- NOTE | 2018-11-23 19:20 | NUR ---
ER DISCHARGE NOTE: Patient is cleared to be discharged per JOHN ARIAS, pt is aox4, on room air, with stable vital signs. pt was given dc and prescription instructions, pt was able to verbalize understanding, pt id band and iv site removed without complications. pt is able to ambulate with steady gait. pt took all belongings.
== END 2018-11-23 19:19 | disposition home or self-care (01) ==
LOC: EMR 13:19
DX: J02.9 Acute pharyngitis, unspecified (principal); K21.9 Gastro-esophageal reflux disease without esophagitis; M54.2 Cervicalgia; I10 Essential (primary) hypertension; E78.00 Pure hypercholesterolemia, unspecified; Z88.6 Allergy status to analgesic agent; K57.90 Diverticulosis of intestine, part unspecified, without perforation or abscess without bleeding; D25.9 Leiomyoma of uterus, unspecified
CPT/HCPCS: 36415; 70491; 74177; 80053; 81001; 85025; Q9967; Z7502; 99284